=== PATIENT | male | born 1980 | race Hispanic/Latino ===

== ENCOUNTER 2019-04-13 13:18 | Emergency (ER) | payer OTHER ==
--- NOTE | 2019-04-13 13:35 | Event Note ---
ED Screening Note ED Screening Note: This initial assessment/diagnostic orders/clinical plan/treatment(s) is/are subject to change based on patients health status, clinical progression and re- assessment by fellow clinical providers in the ED. Further treatment and workup at subsequent clinical providers discretion. Patient/guardian urged not to elope from the ED as their condition may be serious if not clinically assessed and managed. Initial orders include: 38 yo WM states that he started feeling chest pain and SOB began having symptoms 2 hrs prior to arrival. She states that it feels like a heavy object is currently on his chest. He states that nothing makes him feel better. <ANTWON DUDLEY - Last Filed: 04/13/19 13:29> ED Screening Note: This initial assessment/diagnostic orders/clinical plan/treatment(s) is/are subject to change based on patients health status, clinical progression and re- assessment by fellow clinical providers in the ED. Further treatment and workup at subsequent clinical providers discretion. Patient/guardian urged not to elope from the ED as their condition may be serious if not clinically assessed and managed. Initial orders include: <DINESH REDD - Last Filed: 04/13/19 16:46>
[2019-04-13] MEDS ORDERED: ASPIRIN PO ONE (13:36)
[2019-04-13] MEDS ORDERED: ASPIRIN ONE (13:39)
[2019-04-13 14:09] LABS: Basophils # (Auto) 0.1 K/mm3 (0.0-0.1); Basophils % (Auto) 0.8 % (0.0-1.8); Eosinophils # (Auto) 0.2 K/mm3 (0.0-0.4); Eosinophils % (Auto) 1.6 % (0.0-4.3); Hematocrit 44.9 % (35.5-45.6); Hemoglobin 15.2 gm/dl (11.8-15.2); Lymphocytes % (Auto) 14.2 % (13.4-35.0); Mean Corpuscular HGB Conc 34 % (32-34); Mean Corpuscular Volume 89 fl (84-94); Monocytes # (Auto) 0.7 K/mm3 (0.0-0.8); Monocytes % (Auto) 5.1 % (0.0-7.3); Platelet Count 253 K/mm3 (140-440); Red Blood Count 5.07 M/mm3 (3.65-5.03); Red Cell Distribution Width 13.3 % (13.2-15.2)
[2019-04-13] MEDS ORDERED: ALUM-MAG HYDROX-SIMETH 200-200-20MG/5ML PO ONE (14:09)
[2019-04-13] MEDS ORDERED: LIDOCAINE VISCOUS 2% PO ONE (14:10)
[2019-04-13] MEDS ORDERED: PROTONIX IV ONE (14:10)
--- NOTE | 2019-04-13 14:11 | Emergency Department Report ---
ED Chest Pain HPI - General Chief Complaint: Chest Pain Stated Complaint: CHEST PAIN/SHAKY Time Seen by Provider: 04/13/19 14:02 Source: patient Mode of arrival: Ambulatory Limitations: No Limitations - History of Present Illness Initial Comments: 38 YO FIT MAN COMES TO ER WITH CP TODAY. 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 POS NAUSEA. TEARFUL ON EXAM. NO SOB. NO DIAPHORESIS. PMH NONE PSH SPINAL FUSION RX NONE DENIES DRUGS ETOH OR CIG MOM AND DAD ALIVE AND WELL NO FEVER OR CHILLS. NO RECENT ILLNESS. ENDORSES STRESS AT WORK. MD Complaint: chest pain -: Sudden, hour(s) Onset: during rest Pain Location: left chest Pain Radiation: none Severity: severe Severity scale (0 -10): 6 Quality: tightness Consistency: constant Improves With: nothing Worsens With: nothing re: nausea Treatments Prior to Arrival: aspirin Aspirin use within the Past 7 Days: (0) No - Related Data On Oral Contraceptives: No Previous Rx's Medication Instructions Recorded Last Taken Type Ibuprofen [Motrin] 800 mg PO Q8HR PRN #30 tablet 04/13/19 Unknown Rx Allergies Allergy/AdvReac Type Severity Reaction Status Date / Time No Known Allergies Allergy Verified 04/13/19 13:27 Heart Score - HEART Score History: Slightly suspicious EKG: Normal Age: < 45 Risk factors: No known risk factors Troponin: < normal limit HEART Score: 0 ED Review of Systems ROS: Stated complaint: CHEST PAIN/SHAKY Other details as noted in HPI Comment: All other systems reviewed and negative ED Past Medical Hx - Past Medical History Previous Medical History?: No - Surgical History Past Surgical History?: Yes Additional Surgical History: lumbar spinal fusion 2011 - Family History Family history: no significant - Social History Smoking Status: Current Every Day Smoker - Medications Home Medications: Home Medications Medication Instructions Recorded Confirmed Last Taken Type Ibuprofen [Motrin] 800 mg PO Q8HR PRN #30 tablet 04/13/19 Unknown Rx ED Physical Exam - General Limitations: No Limitations General appearance: alert - Head Head exam: Present: atraumatic - Eye Eye exam: Present: PERRL - ENT ENT exam: Present: mucous membranes moist - Neck Neck exam: Present: normal inspection - Respiratory Respiratory exam: Present: normal lung sounds bilaterally - Cardiovascular Cardiovascular Exam: Present: regular rate - GI/Abdominal GI/Abdominal exam: Present: soft, normal bowel sounds - Rectal Rectal exam: Present: deferred - Extremities Exam Extremities exam: Present: normal inspection - Back Exam Back exam: Present: normal inspection - Neurological Exam Neurological exam: Present: alert, oriented X3, CN II-XII intact - Psychiatric Psychiatric exam: Present: normal affect, normal mood - Skin Skin exam: Present: warm, dry ED Course Vital Signs 04/13/19 04/13/19 04/13/19 13:27 13:47 14:00 Temperature 98.1 F Pulse Rate 120 H 98 H 83 Respiratory 22 14 21 Rate Blood Pressure 124/82 Blood Pressure 131/92 [Right] O2 Sat by Pulse 96 Oximetry 04/13/19 04/13/19 04/13/19 15:00 16:00 16:26 Temperature Pulse Rate 106 H 80 Respiratory 27 H 22 16 Rate Blood Pressure 122/85 104/72 Blood Pressure [Right] O2 Sat by Pulse Oximetry - Reevaluation(s) Reevaluation #1: 04/13/19 16:20 HR 100 ON 12 LEAD HR 90 ON EXAM PT ANXIOUS ODETTE score - Odette Score Age > 65: (0) No Aspirin use within the Past 7 Days: (0) No 3 or more CAD Risk Factors: (0) No 2 or more Angina events in past 24 hrs: (0) No Known CAD with more than 50% Stenosis: (0) No Elevated Cardiac Markers: (0) No ST Deviation Greater than 0.5mm: (0) No ODETTE Score: 0 ED Medical Decision Making - Lab Data Result diagrams: 04/13/19 13:47 04/13/19 14:18 - EKG Data EKG shows normal: sinus rhythm Rate: normal - EKG Data When compared to previous EKG there are: no significant change - Radiology Data Radiology results: report reviewed, image reviewed - Medical Decision Making Labs 04/13/19 04/13/19 04/13/19 13:47 13:47 14:18 WBC 14.4 H RBC 5.07 H Hgb 15.2 Hct 44.9 MCV 89 MCH 30 MCHC 34 RDW 13.3 Plt Count 253 Lymph % (Auto) 14.2 Mercer % (Auto) 5.1 Eos % (Auto) 1.6 Baso % (Auto) 0.8 Lymph # 2.0 Mercer # 0.7 Eos # 0.2 Baso # 0.1 Seg Neutrophils % 78.3 H Seg Neutrophils # 11.3 H D-Dimer Sodium 139 136 L Potassium 4.1 4.1 Chloride 101.7 100.6 Carbon Dioxide 21 L 21 L Anion Gap 20 19 BUN 10 10 Creatinine 0.9 0.8 Estimated GFR > 60 > 60 BUN/Creatinine Ratio 11 13 Glucose 98 91 Calcium 9.3 9.1 Total Bilirubin 0.20 Direct Bilirubin Indirect Bilirubin AST 36 ALT 44 Alkaline Phosphatase 68 Troponin T < 0.010 Total Protein 7.9 Albumin 4.3 Albumin/Globulin Ratio 1.2 04/13/19 04/13/19 14:18 14:18 WBC RBC Hgb Hct MCV MCH MCHC RDW Plt Count Lymph % (Auto) Mercer % (Auto) Eos % (Auto) Baso % (Auto) Lymph # Mercer # Eos # Baso # Seg Neutrophils % Seg Neutrophils # D-Dimer < 135.00 Sodium Potassium Chloride Carbon Dioxide Anion Gap BUN Creatinine Estimated GFR BUN/Creatinine Ratio Glucose Calcium Total Bilirubin 0.30 Direct Bilirubin < 0.2 Indirect Bilirubin 0.1 AST 36 ALT 44 Alkaline Phosphatase 67 Troponin T Total Protein 7.9 Albumin 4.3 Albumin/Globulin Ratio 1.2 Vital Signs 04/13/19 04/13/19 04/13/19 13:27 13:47 14:00 Temperature 98.1 F Pulse Rate 120 H 98 H 83 Respiratory 22 14 21 Rate Blood Pressure 124/82 Blood Pressure 131/92 [Right] O2 Sat by Pulse 96 Oximetry 04/13/19 04/13/19 04/13/19 15:00 16:00 16:26 Temperature Pulse Rate 106 H 80 Respiratory 27 H 22 16 Rate Blood Pressure 122/85 104/72 Blood Pressure [Right] O2 Sat by Pulse Oximetry LABS NOTED TROP NEG 12 LEAD NOTED SR NO ECTOPY HR REPORTED 120 NO TACHY ON EXAM ON REEXAM PT STATES HIS BOSS KEEPS TEXTING HIM AND ITS MAKING HIM AN ANXIOUS- HE LAUGHS AND STATES MAYBE IT IS ANXIETY. DISCUSSED DC PLAN OF CARE WITH PT DC HOME WITH PCP FOLLOW UP- REFERRALS GIVEN. - Differential Diagnosis RO ACS/CHEST WALL PAIN/ ANXIETY Critical care attestation.: If time is entered above; I have spent that time in minutes in the direct care of this critically ill patient, excluding procedure time. ED Disposition Clinical Impression: Pleuritic chest pain Disposition: DC-01 TO HOME OR SELFCARE Is pt being admited?: No Does the pt Need Aspirin: No Condition: Stable Instructions: Chest Pain (ED) Additional Instructions: FOLLOW UP WITH PCP IN AM FOR RECHECK Prescriptions: Ibuprofen [Motrin] 800 mg PO Q8HR PRN #30 tablet PRN Reason: Pain, Moderate (4-6) Referrals: [facility] [Outside] - 3-5 Days Time of Disposition: 15:47
--- NOTE | 2019-04-13 14:21 | XRay Report ---
CHEST 1 VIEW INDICATION: Chest Pain. COMPARISON: None. FINDINGS: Support devices: None. Heart: Within normal limits. Pulmonary vasculature: Lungs/Pleura: No acute air space or interstitial disease. Additional findings: None. IMPRESSION: 1. No acute findings. Signer Name: Oswaldo Lemus MD Signed: 04/13/2019 2:16 PM Workstation Name: [id number]
[2019-04-13 14:27] LABS: Blood Urea Nitrogen 10 mg/dL (9-20)
[2019-04-13 14:28] LABS: BUN/Creatinine Ratio 11; Calcium 9.3 mg/dL (8.4-10.2); Hemolysis Index 6
[2019-04-13 15:10] LABS: Alanine Aminotransferase 44 units/L (7-56); Albumin 4.3 g/dL (3.9-5)
[2019-04-13 15:11] LABS: Alanine Aminotransferase 44 units/L (7-56); Albumin 4.3 g/dL (3.9-5); BUN/Creatinine Ratio 13; Blood Urea Nitrogen 10 mg/dL (9-20); Calcium 9.1 mg/dL (8.4-10.2); Hemolysis Index 7
[2019-04-13 15:27] LABS: Bilirubin,Direct < 0.2 mg/dL (0-0.2)
[2019-04-13] MEDS ORDERED: TORADOL IV ONE (15:44)
[2019-04-13 17:01] VITALS: BP 108/71
== END 2019-04-13 17:07 | disposition home or self-care (01) ==
LOC: ED 13:18
DX: R07.89 Other chest pain (principal)
CPT/HCPCS: 36415; 71045; 80048; 80053; 80076; 84484; 85025; 85379; 93005; 93010; 96374; 96375; 99284; C9113; J1885